=== PATIENT | female | born 1940 | race African-American/Black ===

== ENCOUNTER 2020-07-27 01:49 | Inpatient (IN) | payer MEDICARE ==
[2020-07-27] VITALS (10 sets, daily range): BP systolic 142–226; BP diastolic 59–82
[~2020-07-27] VITALS: Ht 160 cm; Wt 73.9 kg
[~2020-07-27 01:49] MED LIST: DOXYCYCLINE 10100 MG PO; GLUCOPHAGE500 MG; HYDROCHLOROTH12.5 MG PO; HYDROCHLOROTHIAZIDE; HYDROCODON-ACE1 EACH PO; NORVASC10 MG
[2020-07-27 02:28] LABS: ABSOLUTE BASOPHILS 0.1 thou/uL (0.0-0.2); ABSOLUTE EOSINOPHILS 0.3 thou/uL (0.0-0.7); ABSOLUTE LYMPHOCYTES 3.3 thou/uL (0.8-5.3); ABSOLUTE MONOCYTES 0.7 thou/uL (0.0-1.2); ABSOLUTE NEUTROPHILS 5.3 thou/uL (1.6-8.1); BASOPHILS 0.8 %; EOSINOPHILS 2.7 %; HEMATOCRIT 38.6 % (37.0-47.0); HEMOGLOBIN 13.2 gm/dL (12.0-15.0); MCH 28.9 pg (26.0-34.0); MCHC 34.2 g/dL (28.0-37.0); MCV 84.7 fL (80.0-100.0); MONOCYTES 7.7 %; MPV 8.9 fl. (7.2-11.1); NUCLEATED RBCS 0 /100WBC; PLATELET COUNT* 249 thou/uL (150-400); POLYS 54.8 %; RBC 4.56 mil/uL (4.20-5.00); RDW-CV 14.1 % (10.5-14.5); WBC 9.7 thou/uL (4.0-11.0)
[2020-07-27 02:36] LABS: APTT 25.5 Seconds (25.0-31.3); PROTIME 10.3 Seconds (9.20-11.50)
[2020-07-27 02:37] LABS: CALCIUM 9.1 mg/dL (8.5-10.1); CREATININE 1.4 mg/dL (0.6-1.3); POTASSIUM 3.3 mmol/L (3.5-5.1)
[2020-07-27 02:39] LABS: URINE BILIRUBIN NEGATIVE (Negative); URINE BLOOD 1+ (Negative); URINE CLARITY CLEAR; URINE COLOR YELLOW; URINE GLUCOSE-RANDOM NEGATIVE (Negative); URINE KETONES NEGATIVE (Negative); URINE LEUKOCYTES-REFLEX NEGATIVE (Negative); URINE NITRITE-REFLEX NEGATIVE (Negative); URINE PROTEIN NEGATIVE (Negative); URINE SPECIFIC GRAVITY 1.015 (1.005-1.030); URINE UROBILINOGEN 0.2 E.U./dl (0.2-1.0)
[2020-07-27 02:41] LABS: ALBUMIN 3.7 g/dL (3.4-5.0); TOTAL BILIRUBIN 0.3 mg/dL (<0.1-1.0); TOTAL PROTEIN 7.4 g/dL (6.4-8.2)
[2020-07-27 03:04] LABS: BACTERIA-REFLEX 1-9 Few /HPF (None Seen); CASTS None Seen /LPF (None Seen); CRYSTALS None Seen /LPF (None Seen); SQUAMOUS 0-3 Few /LPF (0-3); URINE RBC 0-2 Rare /HPF (0-2); URINE WBC-REFLEX 0-5 Rare /HPF (0-5)
[2020-07-27] MEDS ORDERED: METFORMIN HCL500 M3 (06:39)
--- NOTE | 2020-07-27 10:19 | EKG ---
[place] [address] ELECTROCARDIOGRAM REPORT Name: ZAHRA GUZMÁN Room: [address] IN [facility].#: [id number] Admission: 07/27/20 Attend Phys: Danette Palumbo, Discharge: Date of : 40 Date of Service: 07/27/20 0224 Report #: [id number] THIS REPORT FOR: //name// [facility] ED Test Date: 2020-07-27 Test Time: 02:24:09 Pat Name: ZAHRA GUZMÁN Department: Room: [facility] Gender: F [employer] Separator: MR : [id number] Requested By: Juanjo Almonte Order Number: [id number] MD: Diego Lugo Measurements Intervals Melvin Rate: 63 P: 54 NV: 160 QRS: -5 QRSD: 76 T: -23 QT: 413 QTc: 423 Interpretive Statements Sinus rhythm Probable left atrial enlargement septal infarct, old Borderline T abnormalities, inferior leads Baseline wander in lead(s) V6 Compared to ECG 08/05/2008 10:35:44 Myocardial infarct finding now present T-wave abnormality now present Electronically Signed On 07-27-2020 10:19:22 CDT by Diego Lugo [email or web address] <ELECTRONICALLY SIGNED> By: Diego Lugo MD, FACC 07/27/20 1019 3 3 Diego Lugo MD, [facility] /EPI
[2020-07-27 11:06] LABS: ABSOLUTE EOSINOPHILS 0.1 thou/uL (0.0-0.7); ABSOLUTE LYMPHOCYTES 1.7 thou/uL (0.8-5.3); ABSOLUTE MONOCYTES 0.4 thou/uL (0.0-1.2); ABSOLUTE NEUTROPHILS 6.7 thou/uL (1.6-8.1); BASOPHILS 0.5 %; HEMATOCRIT 37.1 % (37.0-47.0); HEMOGLOBIN 12.5 gm/dL (12.0-15.0); LYMPHOCYTES 18.9 %; MCH 28.7 pg (26.0-34.0); MCHC 33.7 g/dL (28.0-37.0); MPV 8.8 fl. (7.2-11.1); NUCLEATED RBCS 0 /100WBC; PLATELET COUNT* 250 thou/uL (150-400); POLYS 75.6 %; RBC 4.36 mil/uL (4.20-5.00); RDW-CV 13.9 % (10.5-14.5); WBC 8.9 thou/uL (4.0-11.0)
[2020-07-27 11:12] LABS: CALCIUM 8.7 mg/dL (8.5-10.1); CREATININE 0.9 mg/dL (0.6-1.3); POTASSIUM 3.1 mmol/L (3.5-5.1)
[2020-07-27 20:09] LABS: CREATININE 1.1 mg/dL (0.6-1.3); MAGNESIUM 1.9 mg/dL (1.8-2.4); POTASSIUM 3.5 mmol/L (3.5-5.1)
[2020-07-28 00:49] VITALS: BP 175/83
[2020-07-28 04:10] VITALS: BP 186/81
[2020-07-28 06:10] LABS: ABSOLUTE BASOPHILS 0.1 thou/uL (0.0-0.2); ABSOLUTE EOSINOPHILS 0.2 thou/uL (0.0-0.7); ABSOLUTE LYMPHOCYTES 2.1 thou/uL (0.8-5.3); ABSOLUTE MONOCYTES 0.6 thou/uL (0.0-1.2); ABSOLUTE NEUTROPHILS 5.7 thou/uL (1.6-8.1); BASOPHILS 1.2 %; EOSINOPHILS 2.7 %; HEMATOCRIT 33.3 % (37.0-47.0); HEMOGLOBIN 11.5 gm/dL (12.0-15.0); LYMPHOCYTES 23.9 %; MCH 29.9 pg (26.0-34.0); MCHC 34.5 g/dL (28.0-37.0); MCV 86.6 fL (80.0-100.0); MONOCYTES 6.6 %; MPV 9.4 fl. (7.2-11.1); NUCLEATED RBCS 0 /100WBC; POLYS 65.6 %; RBC 3.84 mil/uL (4.20-5.00); RDW-CV 13.9 % (10.5-14.5); WBC 8.6 thou/uL (4.0-11.0)
[2020-07-28 06:16] LABS: PLATELET COUNT* 164 thou/uL (150-400)
[2020-07-28 06:21] LABS: CALCIUM 8.2 mg/dL (8.5-10.1); CREATININE 0.8 mg/dL (0.6-1.3); POTASSIUM 3.6 mmol/L (3.5-5.1)
[2020-07-28 07:48] VITALS: BP 173/77
[2020-07-28 17:25] VITALS: BP 142/82
[2020-07-28 20:00] VITALS: BP 191/74
[2020-07-28 21:20] LABS: ABSOLUTE BASOPHILS 0.1 thou/uL (0.0-0.2); ABSOLUTE EOSINOPHILS 0.2 thou/uL (0.0-0.7); ABSOLUTE LYMPHOCYTES 1.5 thou/uL (0.8-5.3); ABSOLUTE MONOCYTES 0.5 thou/uL (0.0-1.2); ABSOLUTE NEUTROPHILS 5.3 thou/uL (1.6-8.1); BASOPHILS 0.8 %; EOSINOPHILS 2.4 %; HEMATOCRIT 31.6 % (37.0-47.0); HEMOGLOBIN 10.8 gm/dL (12.0-15.0); LYMPHOCYTES 19.8 %; MCHC 34.1 g/dL (28.0-37.0); MONOCYTES 6.8 %; MPV 9.1 fl. (7.2-11.1); NUCLEATED RBCS 0 /100WBC; PLATELET COUNT* 239 thou/uL (150-400); POLYS 70.2 %; RBC 3.72 mil/uL (4.20-5.00); WBC 7.6 thou/uL (4.0-11.0)
[2020-07-28 21:23] LABS: CALCIUM 8.2 mg/dL (8.5-10.1); CREATININE 1.1 mg/dL (0.6-1.3); POTASSIUM 3.3 mmol/L (3.5-5.1)
[2020-07-28 22:00] VITALS: BP 163/71
[2020-07-29] VITALS: BP 162/72
[2020-07-29 04:00] VITALS: BP 162/41
[2020-07-29 05:22] LABS: ABSOLUTE BASOPHILS 0.1 thou/uL (0.0-0.2); ABSOLUTE EOSINOPHILS 0.2 thou/uL (0.0-0.7); ABSOLUTE LYMPHOCYTES 2.2 thou/uL (0.8-5.3); ABSOLUTE MONOCYTES 0.6 thou/uL (0.0-1.2); ABSOLUTE NEUTROPHILS 4.2 thou/uL (1.6-8.1); BASOPHILS 0.7 %; EOSINOPHILS 2.6 %; HEMATOCRIT 28.2 % (37.0-47.0); LYMPHOCYTES 30.8 %; MCHC 35.5 g/dL (28.0-37.0); MCV 84.7 fL (80.0-100.0); MONOCYTES 7.9 %; NUCLEATED RBCS 0 /100WBC; PLATELET COUNT* 212 thou/uL (150-400); RBC 3.33 mil/uL (4.20-5.00); RDW-CV 13.6 % (10.5-14.5); WBC 7.2 thou/uL (4.0-11.0)
[2020-07-29 05:30] LABS: CALCIUM 8.2 mg/dL (8.5-10.1); CREATININE 0.9 mg/dL (0.6-1.3)
[2020-07-29 08:00] VITALS: BP 172/69
[2020-07-29 13:39] VITALS: BP 139/54
[2020-07-29 19:00] VITALS: BP 178/70
[2020-07-29 20:00] VITALS: BP 155/74
[2020-07-30 00:07] VITALS: BP 170/65
[2020-07-30 04:40] VITALS: BP 166/60
[2020-07-30 06:12] LABS: HEMOGLOBIN 9.7 gm/dL (12.0-15.0); MCH 28.5 pg (26.0-34.0); MCHC 33.5 g/dL (28.0-37.0); MCV 85.2 fL (80.0-100.0); MPV 9.2 fl. (7.2-11.1); RBC 3.41 mil/uL (4.20-5.00); RDW-CV 13.8 % (10.5-14.5); WBC 7.3 thou/uL (4.0-11.0)
[2020-07-30 06:49] LABS: CALCIUM 8.6 mg/dL (8.5-10.1); CREATININE 0.8 mg/dL (0.6-1.3); POTASSIUM 3.5 mmol/L (3.5-5.1)
[2020-07-30 08:00] VITALS: BP 183/68
[2020-07-30 12:00] VITALS: BP 174/61
[2020-07-30 16:00] VITALS: BP 174/69
[2020-07-30 20:00] VITALS: BP 162/74
[2020-07-31] VITALS: BP 158/62
[2020-07-31 04:00] VITALS: BP 179/64
[2020-07-31 04:30] VITALS: BP 167/71
[2020-07-31 06:30] LABS: HEMATOCRIT 27.7 % (37.0-47.0); HEMOGLOBIN 9.5 gm/dL (12.0-15.0); MCHC 34.1 g/dL (28.0-37.0); MCV 84.9 fL (80.0-100.0); MPV 9.6 fl. (7.2-11.1); RBC 3.26 mil/uL (4.20-5.00); RDW-CV 13.5 % (10.5-14.5); WBC 9.8 thou/uL (4.0-11.0)
[2020-07-31 06:43] LABS: CALCIUM 8.4 mg/dL (8.5-10.1); CREATININE 0.9 mg/dL (0.6-1.3); POTASSIUM 3.2 mmol/L (3.5-5.1)
[2020-07-31 08:00] VITALS: BP 205/66
[2020-07-31] MEDS ORDERED: PRINIVIL20 MG PO (09:48)
[2020-07-31] MEDS ORDERED: CARVEDILOL3.125 MG PO (09:48)
[2020-07-31] MEDS ORDERED: METFORMIN HCL500 M1 PO (09:48)
[2020-07-31] MEDS ORDERED: HYDROCHLOROTHIA25 M1 PO (09:48)
[2020-07-31 13:15] VITALS: BP 205/66
== END 2020-07-31 14:43 | disposition home or self-care (01) | DRG 378 ==
LOC: M.ERS 01:49 → M.2W 03:48 → M.TBA-ER 03:48 → M.2W 04:55
PROVIDERS: Family Medicine; Internal Medicine; Internal Medicine Gastroenterology; ADMIT Internal Medicine; ATTEND Internal Medicine
PROC: 0DJ08ZZ Inspection of Upper Intestinal Tract, Via Natural or Artificial Opening Endoscopic (ICD-10-PCS; principal; 2020-07-28)
PROC: 0DJD8ZZ Inspection of Lower Intestinal Tract, Via Natural or Artificial Opening Endoscopic (ICD-10-PCS; principal; 2020-07-28)
DX: K57.31 Diverticulosis of large intestine without perforation or abscess with bleeding (principal); N17.9 Acute kidney failure, unspecified; I16.0 Hypertensive urgency; E78.5 Hyperlipidemia, unspecified; I10 Essential (primary) hypertension; E11.9 Type 2 diabetes mellitus without complications; K63.5 Polyp of colon; K44.9 Diaphragmatic hernia without obstruction or gangrene; E66.9 Obesity, unspecified; Z79.899 Other long term (current) drug therapy; Z88.0 Allergy status to penicillin; Z90.710 Acquired absence of both cervix and uterus; Z68.28 Body mass index [BMI] 28.0-28.9, adult; Z20.828 Contact with and (suspected) exposure to other viral communicable diseases